=== PATIENT | male | born 1975 | race Caucasian/White ===

== ENCOUNTER 2019-04-16 21:04 | Emergency (ER) | payer BC ==
[2019-04-16 21:29] VITALS: TEMP 98.4; BMI 38.2
--- NOTE | 2019-04-16 21:29 | PDOC ---
Rapid Medical Evaluation Chief Complaint: Blood Pressure Problem Time Seen by Provider: 04/16/19 21:24 Medical Evaluation: Allergies Allergy/AdvReac Type Severity Reaction Status Date / Time No Known Drug Allergies Allergy Verified 03/01/16 17:54 04/16/19 21:25 44 year old male c/o right arm pain x 2 days after falling asleep on the floor. patient send to ER by urgent care for evaluation of high blood pressure reading and bodyaches r/o rhabdo PE: Patient alert ox3 A: bodyaches P: Labs EKG Discharge Disposition - Diagnosis Abnormal blood pressure - Referrals - Patient Instructions - Post Discharge Activity
[2019-04-16 21:59] LABS: BASO % 0.7 % (0-2.0); EOS % 0.9 % (0-4.5); HEMATOCRIT 41.6 % (35.4-49); HEMOGLOBIN 14.1 GM/dL (11.7-16.9); LYMPH % 10.9 % (8-40); MCH 29.7 pg (25.7-33.7); MCHC 33.9 g/dl (32.0-35.9); MEAN CELL VOLUME 87.7 fl (80-96); MEAN PLT VOLUME 8.5 fl (7.5-11.1); NEUT % 79.5 % (42.8-82.8); PLATELET COUNT 229 K/MM3 (134-434); RBC 4.74 M/mm3 (4.00-5.60); RDW 13.6 % (11.9-15.9); WHITE BLOOD COUNT 10.4 K/mm3 (4.0-10.0)
[2019-04-16 22:28] LABS: ALBUMIN 4.1 g/dl (3.4-5.0); ALK PHOS 99 U/L (45-117); ANION GAP 7 MMOL/L (8-16); BILIRUBIN,TOTAL 0.5 mg/dL (0.2-1); BLOOD UREA NITROGEN 18.5 mg/dL (7-18); CALCIUM 9.3 mg/dL (8.5-10.1); CHLORIDE 106 mmol/L (98-107); CO2 28 mmol/L (21-32); GLUCOSE,RANDOM 128 mg/dL (74-106); POTASSIUM 4.2 mmol/L (3.5-5.1); SGOT/AST 18 U/L (15-37); SGPT/ALT 27 U/L (13-61); SODIUM 141 mmol/L (136-145); TOT PROT 7.6 g/dl (6.4-8.2)
[2019-04-16 23:43] VITALS: BP 139/92; PULSE 84
--- NOTE | 2019-04-17 00:10 | PDOC ---
History of Present Illness - General Chief Complaint: Blood Pressure Problem Stated Complaint: HIGH BLOOD PRESSURE Time Seen by Provider: 04/16/19 21:24 History Source: Patient Exam Limitations: No Limitations Past History - Past Medical History Allergies/Adverse Reactions: Allergies Allergy/AdvReac Type Severity Reaction Status Date / Time No Known Drug Allergies Allergy Verified 04/16/19 21:29 Home Medications: Ambulatory Orders Amlodipine Besylate/Valsartan [Amlodipine-Valsartan 5-160 mg] 1 each PO DAILY COPD: No Disorders: Yes (KIDNEY STONES) HTN: Yes - Immunization History Immunization Up to Date: Yes - Suicide/Smoking/Psychosocial Hx Smoking History: Former smoker Have you smoked in the past 12 months: No Number of Cigarettes Smoked Daily: 0 If you are a former smoker, when did you quit?: 2014 Information on smoking cessation initiated: No Hx Alcohol Use: No Drug/Substance Use Hx: No Substance Use Type: None Hx Substance Use Treatment: No *Physical Exam - Vital Signs Last Vital Signs Temp Pulse Resp BP Pulse Ox 98.4 F 84 20 139/92 98 04/16/19 21:24 04/16/19 23:42 04/16/19 21:24 04/16/19 23:42 04/16/19 23:42 - Physical Exam General Appearance: No: Apparent Distress Neck: positive: Supple. negative: Decreased range of motion, Tender lateral, Tender midline Respiratory/Chest: positive: Lungs Clear, Normal Breath Sounds. negative: Respiratory Distress Cardiovascular: positive: Regular Rhythm, Regular Rate, S1, S2. negative: Murmur Gastrointestinal/Abdominal: positive: Normal Bowel Sounds, Soft. negative: Tender, Distended, Guarding, Rebound Neurologic: positive: Fully Oriented, Alert, Normal Mood/Affect, Motor Strength 5/5. negative: Sensory Deficit, Confused, Disoriented ED Treatment Course - LABORATORY CBC & Chemistry Diagram: 04/16/19 21:46 04/16/19 21:46 - ADDITIONAL ORDERS Additional order review: Laboratory Results 04/16/19 21:46 Sodium 141 Potassium 4.2 Chloride 106 Carbon Dioxide 28 Anion Gap 7 L BUN 18.5 H Creatinine 1.0 Est GFR (CKD-EPI)AfAm 104.15 Est GFR (CKD-EPI)NonAf 89.86 Random Glucose 128 H Calcium 9.3 Total Bilirubin 0.5 AST 18 ALT 27 Alkaline Phosphatase 99 Creatine Kinase 108 Troponin I < 0.02 Total Protein 7.6 Albumin 4.1 04/16/19 21:46 RBC 4.74 MCV 87.7 MCHC 33.9 RDW 13.6 MPV 8.5 Neutrophils % 79.5 Lymphocytes % 10.9 D Monocytes % 8.0 Eosinophils % 0.9 Basophils % 0.7 D Medical Decision Making - Medical Decision Making 44 y/o M hx of HTN presents with R sided neck pain radiating down R arm after sleeping on R arm 4 days ago. Mentions he didn't pay it much attention but his told him he should get it evaluated as it could be something serious, which patient made anxious. He went to urgent care and was found to have BP of 180/120 and was sent to ER. Patient takes Norvasc/Losartan currently for BP, but states BP has never been this high. Denies numbness/tingling/weakness of extremities, fever, sob, cp, abd pain, n/v, trauma. EKG: NSR at 92 bpm, TWI lead III Labs reviewed and unremarkable Repeat BP much better Could likely be MSK pain; less likely radiculopathy stable for dc 04/17/19 00:06 *DC/Admit/Observation/Transfer Diagnosis at time of Disposition: Right arm pain - Discharge Dispostion Disposition: HOME Condition at time of disposition: Stable Decision to Admit order: No - Referrals Referrals: Bruno Mercedes MD [Primary Care Provider] - 2 Days - Patient Instructions Printed Discharge Instructions: DI for High Blood Pressure Additional Instructions: Thank you for choosing [facility]. It was a pleasure taking care of you. Likely your right arm pain is muscular in nature. Please follow-up with your doctor for better control of blood pressure Return to the Emergency Department if your symptoms worsen or persist, you have fever, shortness of breath, chest pain, weakness of extremities or other concerning symptoms. - Post Discharge Activity
--- NOTE | 2019-04-17 14:03 | EKG ---
Test Reason : Blood Pressure : / mmHG Vent. Rate : 092 BPM Atrial Rate : 092 BPM P-R Int : 154 ms QRS Dur : 086 ms QT Int : 372 ms P-R-T Axes : 039 -02 004 degrees QTc Int : 460 ms NORMAL SINUS RHYTHM WHEN COMPARED WITH ECG OF 22-DEC-2015 00:09, NO SIGNIFICANT CHANGE WAS FOUND Confirmed by LANNY RAYMOND MD ([id number]) on 04/17/2019 2:02:45 PM Referred By: Confirmed By:LANNY RAYMOND MD
== END 2019-04-17 00:22 | disposition home or self-care (01) ==
LOC: JER 21:04
DX: M79.601 Pain in right arm (principal); Z87.891 Personal history of nicotine dependence; I10 Essential (primary) hypertension
CPT/HCPCS: 36415; 80053; 82550; 84484; 85025; 93005; 93010; 99283-25

== ENCOUNTER 2021-04-10 00:16 | Emergency (ER) | payer BC ==
[2021-04-10 00:59] VITALS: BMI 38.8
[2021-04-10] MEDS ORDERED: morphine CARPU-JECT 2 MG/1 ML DISP.SYRIN IVPUSH ONE (02:41)
[2021-04-10] MEDS ORDERED: FAMOTIDINE 20 MG/50 ML IVPB 20 MG/50 ML MG IVPB ONE ×2 (02:51→02:56)
[2021-04-10] MEDS ORDERED: MAG HYDROX/AL HYDROX/SIMETH 30 ML UNIT-DOSE CUP PO ONE (02:51)
[2021-04-10] MEDS ORDERED: ACETAMINOPHEN 1000 MG/100 ML VIAL (NON FORMULARY) IVPB ONE (02:51)
[2021-04-10] MEDS ORDERED: ONDANSETRON 4 MG/2 ML VIAL IVPUSH ONE (02:51)
[2021-04-10] MEDS ORDERED: ONDANSETRON 4 MG/2 ML VIAL ONE (02:55)
[2021-04-10] MEDS ORDERED: ACETAMINOPHEN INJECTION 100 ML IVPB ONE (02:55)
[2021-04-10] MEDS ORDERED: MAG HYDROX/AL HYDROX/SIMETH 30 ML UNIT-DOSE CUP ONE (02:55)
[2021-04-10] MEDS ORDERED: MORPHINE SULFATE 2 MG/ML VIAL ONE (03:26)
[2021-04-10 03:44] LABS: CHLORIDE 105 mmol/L (98-107); SODIUM 137 mmol/L (136-145)
[2021-04-10 03:47] LABS: ALBUMIN 4.4 g/dl (3.4-5.0); ANION GAP 10 MMOL/L (8-16); BLOOD UREA NITROGEN 13.6 mg/dL (7-18); CALCIUM 8.8 mg/dL (8.5-10.1); CO2 23 mmol/L (21-32); GLUCOSE,RANDOM 129 mg/dL (74-106); LIPASE 99 U/L (73-393)
[2021-04-10 03:50] LABS: CREATININE 0.9 mg/dL (0.55-1.3); SGOT/AST 26 U/L (15-37); SGPT/ALT 33 U/L (13-61)
[2021-04-10 03:52] LABS: BILIRUBIN,TOTAL 0.6 mg/dL (0.2-1); TOT PROT 8.6 g/dl (6.4-8.2)
[2021-04-10 03:53] LABS: ALK PHOS 105 U/L (45-117)
[2021-04-10 04:47] LABS: BASO % 0.5 % (0-2.0); EOS % 0.1 % (0-4.5); HEMATOCRIT 42.9 % (35.4-49); LYMPH % 4.7 % (8-40); MCH 29.6 pg (25.7-33.7); MCHC 34.9 g/dl (32.0-35.9); MEAN PLT VOLUME 9.3 fl (7.5-11.1); MONO % 3.9 % (3.8-10.2); NEUT % 90.8 % (42.8-82.8); PLATELET COUNT 291 10^3/uL (134-434); RBC 5.04 M/mm3 (4.00-5.60); RDW 13.6 % (11.9-15.9); WHITE BLOOD COUNT 18.3 K/mm3 (4.0-10.0)
[2021-04-10] MEDS ORDERED: HYDROmorphone HCL CARPU-JECT 2 MG/1 ML DISP.SYRIN IVPB ONE (04:56)
[2021-04-10] MEDS ORDERED: HYDROmorphone HCl 2 MG/ML VIAL ONE ×2 (05:10→09:29)
[2021-04-10 06:56] LABS: URINE APPEARANCE CLEAR; URINE BILIRUBIN NEGATIVE (NEGATIVE); URINE COLOR YELLOW; URINE GLUCOSE (UA) NEGATIVE (NEGATIVE); URINE KETONE NEGATIVE (NEGATIVE); URINE LEUK ESTERASE NEGATIVE (NEGATIVE); URINE NITRITE NEGATIVE (NEGATIVE); URINE PROTEIN NEGATIVE (NEGATIVE); URINE UROBILINOGEN 0.2 mg/dL (0.2-1.0)
[2021-04-10 07:04] VITALS: PULSE 85
[2021-04-10] MEDS ORDERED: CEFTRIAXONE 1,000 MG in DEXTROSE 5%-WATER - 50 ML IVPB ONE (07:27)
[2021-04-10] MEDS ORDERED: morphine CARPU-JECT 4 MG/1 ML DISP.SYRIN IVPUSH ONE (08:37)
[2021-04-10] MEDS ORDERED: CEFTRIAXONE 1 GM/50 ML BAG ONE (08:58)
[2021-04-10] MEDS ORDERED: morphine SULFATE 4 MG/ML VIAL ONE (08:59)
[2021-04-10] MEDS ORDERED: HYDROmorphone HCL CARPU-JECT 2 MG/1 ML DISP.SYRIN IVPUSH ONE (09:28)
[2021-04-10 11:57] VITALS: BP 163/78; TEMP 97.8
== END 2021-04-10 11:57 | disposition short-term general hospital (02) ==
LOC: JER 00:16
PROC: 3E033NZ Introduction of Analgesics, Hypnotics, Sedatives into Peripheral Vein, Percutaneous Approach (ICD-10-PCS; principal; 2021-04-10)
PROC: 3E033GC Introduction of Other Therapeutic Substance into Peripheral Vein, Percutaneous Approach (ICD-10-PCS; 2021-04-10)
PROC: 3E033GC Introduction of Other Therapeutic Substance into Peripheral Vein, Percutaneous Approach (ICD-10-PCS; 2021-04-10)
PROC: 3E033GC Introduction of Other Therapeutic Substance into Peripheral Vein, Percutaneous Approach (ICD-10-PCS; 2021-04-10)
PROC: 3E033GC Introduction of Other Therapeutic Substance into Peripheral Vein, Percutaneous Approach (ICD-10-PCS; 2021-04-10)
PROC: 3E03329 Introduction of Other Anti-infective into Peripheral Vein, Percutaneous Approach (ICD-10-PCS; 2021-04-10)
PROC: 3E033GC Introduction of Other Therapeutic Substance into Peripheral Vein, Percutaneous Approach (ICD-10-PCS; 2021-04-10)
PROC: 3E033GC Introduction of Other Therapeutic Substance into Peripheral Vein, Percutaneous Approach (ICD-10-PCS; 2021-04-10)
DX: K81.0 Acute cholecystitis (principal)
CPT/HCPCS: 36415; 71046-TC-FY; 74177-TC; 76705-TC; 80053; 81003; 82550; 82553; 83605; 83690; 84484; 85025; 87040; 87086; 93005; 93010; 99285-25; C9803; J0131; U0003; U0005

== ENCOUNTER 2021-07-17 05:20 | Day surgery (SDC) | payer BC ==
[2021-07-14 11:01] VITALS: BMI 37.4
[2021-07-17 15:50] VITALS: TEMP 98
[2021-07-17 16:26] VITALS: BP 138/84; PULSE 76
== END 2021-07-17 16:44 | disposition home or self-care (01) ==
LOC: JASU-SURG 05:20
PROVIDERS: ATTEND Urology
PROC: 0TF4XZZ Fragmentation in Left Kidney Pelvis, External Approach (ICD-10-PCS; principal; 2021-07-17 13:30)
DX: N20.0 Calculus of kidney (principal)

== ENCOUNTER 2022-03-24 11:56 | Observation (INO) | payer BC ==
[2022-03-24 11:59] VITALS: BMI 39.6
[2022-03-24] MEDS ORDERED: LABETALOL HCL 5 MG/1 ML (100MG/20 ML VIAL) IVPUSH ONE ×2 (12:46→14:44)
[2022-03-24 13:23] LABS: BASO % 0.8 % (0-2.0); EOS % 1.3 % (0-4.5); HEMATOCRIT 40.8 % (35.4-49); HEMOGLOBIN 14.4 GM/dL (11.7-16.9); LYMPH % 12.9 % (8-40); MCH 29.7 pg (25.7-33.7); MCHC 35.2 g/dl (32.0-35.9); MEAN CELL VOLUME 84.3 fl (80-96); MEAN PLT VOLUME 8.3 fl (7.5-11.1); MONO % 9.4 % (3.8-10.2); NEUT % 75.6 % (42.8-82.8); PLATELET COUNT 240 10^3/uL (134-434); RBC 4.84 M/mm3 (4.00-5.60); RDW 14.6 % (11.9-15.9); WHITE BLOOD COUNT 9.6 K/mm3 (4.0-10.0)
[2022-03-24 13:44] LABS: CHLORIDE 99 mmol/L (98-107); SODIUM 125 mmol/L (136-145)
[2022-03-24 13:46] LABS: ALBUMIN 3.4 g/dl (3.4-5.0); BLOOD UREA NITROGEN 15.4 mg/dL (7-18); CALCIUM 8.4 mg/dL (8.5-10.1); CO2 27 mmol/L (21-32); GLUCOSE,RANDOM 110 mg/dL (74-106)
[2022-03-24 13:49] LABS: CREATININE 1.2 mg/dL (0.55-1.3)
[2022-03-24 13:51] LABS: TOT PROT 9.5 g/dl (6.4-8.2)
[2022-03-24 13:52] LABS: ALK PHOS 106 U/L (45-117)
[2022-03-24 15:33] LABS: EPI CELLS 3 /uL (0-25.1); HYALINE CASTS 1 /uL (0-3.1); PH,URINE 6.5 (5.0-8.0); URINE APPEARANCE CLEAR; URINE BACTERIA 1 /uL (0-1359); URINE BILIRUBIN NEGATIVE (NEGATIVE); URINE COLOR YELLOW; URINE GLUCOSE (UA) NEGATIVE (NEGATIVE); URINE KETONE NEGATIVE (NEGATIVE); URINE LEUK ESTERASE NEGATIVE (NEGATIVE); URINE NITRITE NEGATIVE (NEGATIVE); URINE PROTEIN 1+ (NEGATIVE); URINE RBC 4 /uL (0-23.9); URINE UROBILINOGEN 0.2 mg/dL (0.2-1.0); URINE WBC 4 /uL (0-25.8)
[2022-03-24 15:52] LABS: ALBUMIN 3.6 g/dl (3.4-5.0); CALCIUM 8.4 mg/dL (8.5-10.1)
[2022-03-24 15:53] LABS: BLOOD UREA NITROGEN 14.2 mg/dL (7-18)
[2022-03-24 15:56] LABS: CREATININE 1.1 mg/dL (0.55-1.3)
[2022-03-24 15:57] LABS: BILIRUBIN,TOTAL 0.6 mg/dL (0.2-1)
[2022-03-24 16:01] LABS: TOT PROT 7.4 g/dl (6.4-8.2)
[2022-03-24] MEDS ORDERED: POTASSIUM CHLORIDE TABS 20 MEQ TABLET.ER (FP) PO ONE ×2 (16:01→16:21)
[2022-03-24] MEDS ORDERED: amLODIPine BESYLATE 10 MG TABLET (FP) PO ONE (16:03)
[2022-03-24] MEDS ORDERED: amLODIPine BESYLATE 10 MG TABLET (FP) ONE (16:21)
[2022-03-24] MEDS ORDERED: hydrALAZINE HCL 20 MG/ML VIAL IVPUSH ONE ×2 (16:53→18:08)
[2022-03-24] MEDS ORDERED: hydrALAZINE HCL 20 MG/ML VIAL ONE ×2 (17:05→18:51)
[2022-03-24] MEDS ORDERED: ACETAMINOPHEN 325 MG TABLET (FP) PO ONE (17:05)
[2022-03-24] MEDS ORDERED: ACETAMINOPHEN 325 MG TABLET (FP) ONE (17:17)
[2022-03-24] MEDS ORDERED: VALSARTAN 160 MG TABLET PO ONE (21:06)
[2022-03-24] MEDS ORDERED: VALSARTAN 80 MG TABLET ONE (21:37)
[2022-03-25] MEDS ORDERED: VALSARTAN 160 MG TABLET PO ONE (06:01)
[2022-03-25] MEDS ORDERED: ACETAMINOPHEN 325 MG TABLET (FP) PO PRN ×2 (06:18→11:21)
[2022-03-25] MEDS ORDERED: ENOXAPARIN NA (PORCINE) 40 MG/0.4 ML DISP.SYRIN SQ SCH (10:00)
[2022-03-25] MEDS ORDERED: METOPROLOL TARTRATE 25 MG TABLET (FP) PO SCH (10:00)
[2022-03-25] MEDS ORDERED: amLODIPine BESYLATE 10 MG TABLET (FP) PO SCH (10:00)
[2022-03-25] MEDS ORDERED: metoPROLOL SUCCINATE 25 MG TAB.SR.24H (FP) PO SCH (10:00)
[2022-03-25 10:08] LABS: BASO % 0.3 % (0-2.0); EOS % 1.4 % (0-4.5); HEMATOCRIT 36.5 % (35.4-49); LYMPH % 14.7 % (8-40); MCH 29.7 pg (25.7-33.7); MCHC 35.6 g/dl (32.0-35.9); MEAN CELL VOLUME 83.2 fl (80-96); MEAN PLT VOLUME 8.5 fl (7.5-11.1); MONO % 6.2 % (3.8-10.2); NEUT % 77.4 % (42.8-82.8); PLATELET COUNT 224 10^3/uL (134-434); RBC 4.38 M/mm3 (4.00-5.60); RDW 13.3 % (11.9-15.9); WHITE BLOOD COUNT 8.8 K/mm3 (4.0-10.0)
[2022-03-25 10:35] LABS: ALBUMIN 3.5 g/dl (3.4-5.0); BLOOD UREA NITROGEN 15.6 mg/dL (7-18); CALCIUM 8.7 mg/dL (8.5-10.1); CREATININE 1.1 mg/dL (0.55-1.3); MAGNESIUM 2.1 mg/dL (1.8-2.4); PHOSPHOROUS 2.5 mg/dL (2.5-4.9)
[2022-03-25] MEDS ORDERED: POTASSIUM CHLORIDE TABS 20 MEQ TABLET.ER (FP) PO ONE (10:38)
[2022-03-25] MEDS: LIDOCAINE 5% TOPICAL PATCH TP SCH (12:29)
[2022-03-25] MEDS: VALSARTAN 160 MG TABLET PO SCH (14:44)
[2022-03-25] MEDS: METOPROLOL TARTRATE 25 MG TABLET (FP) PO SCH (22:15)
[2022-03-25] MEDS: LIDOCAINE PATCH REMOVAL MC SCH (22:17)
[2022-03-26] MEDS: amLODIPine BESYLATE 10 MG TABLET (FP) PO SCH (10:38)
[2022-03-26] MEDS: VALSARTAN 160 MG TABLET PO SCH (10:38)
[2022-03-26] MEDS: ENOXAPARIN NA (PORCINE) 40 MG/0.4 ML DISP.SYRIN SQ SCH (10:38)
[2022-03-26] MEDS: METOPROLOL TARTRATE 25 MG TABLET (FP) PO SCH (10:38)
[2022-03-26] MEDS: LIDOCAINE 5% TOPICAL PATCH TP SCH (10:38)
[2022-03-26 16:37] LABS: ALBUMIN 3.6 g/dl (3.4-5.0); CALCIUM 9.1 mg/dL (8.5-10.1)
[2022-03-26 16:38] LABS: BLOOD UREA NITROGEN 17.5 mg/dL (7-18)
[2022-03-26 16:42] LABS: BILIRUBIN,TOTAL 0.5 mg/dL (0.2-1)
[2022-03-26] MEDS ORDERED: METOPROLOL TARTRATE 50 MG TABLET (FP) PO ONE (18:09)
[2022-03-26] MEDS ORDERED: METOPROLOL TARTRATE 25 MG TABLET (FP) PO SCH (18:10)
[2022-03-26] MEDS ORDERED: CARVEDILOL 25 MG TABLET (FP) PO ONE ×2 (18:14→18:45)
[2022-03-26] MEDS ORDERED: CARVEDILOL 12.5 MG TABLET (FP) PO SCH (22:00)
[2022-03-26] MEDS: CARVEDILOL 25 MG TABLET (FP) PO SCH (22:03)
[2022-03-26] MEDS: LIDOCAINE PATCH REMOVAL MC SCH (22:03)
[2022-03-27] MEDS: ENOXAPARIN NA (PORCINE) 40 MG/0.4 ML DISP.SYRIN SQ SCH (09:13)
[2022-03-27] MEDS: LIDOCAINE 5% TOPICAL PATCH TP SCH (09:13)
[2022-03-27] MEDS: VALSARTAN 160 MG TABLET PO SCH (09:14)
[2022-03-27] MEDS: CARVEDILOL 25 MG TABLET (FP) PO SCH (09:14)
[2022-03-27] MEDS: amLODIPine BESYLATE 10 MG TABLET (FP) PO SCH (09:14)
[2022-03-27 13:21] LABS: BASO % 0.5 % (0-2.0); EOS % 2.2 % (0-4.5); HEMATOCRIT 38.4 % (35.4-49); HEMOGLOBIN 13.3 GM/dL (11.7-16.9); LYMPH % 20.4 % (8-40); MCH 29.2 pg (25.7-33.7); MCHC 34.5 g/dl (32.0-35.9); MEAN CELL VOLUME 84.6 fl (80-96); MEAN PLT VOLUME 8.8 fl (7.5-11.1); MONO % 7.8 % (3.8-10.2); NEUT % 69.1 % (42.8-82.8); PLATELET COUNT 251 10^3/uL (134-434); RBC 4.55 M/mm3 (4.00-5.60); RDW 13.2 % (11.9-15.9); WHITE BLOOD COUNT 9.8 K/mm3 (4.0-10.0)
[2022-03-27 14:19] LABS: BLOOD UREA NITROGEN 19.5 mg/dL (7-18); CALCIUM 8.9 mg/dL (8.5-10.1); MAGNESIUM 2.2 mg/dL (1.8-2.4)
[2022-03-27 14:20] LABS: ALBUMIN 3.6 g/dl (3.4-5.0)
[2022-03-27 14:23] LABS: CREATININE 0.9 mg/dL (0.55-1.3)
[2022-03-27 14:24] LABS: BILIRUBIN,TOTAL 0.6 mg/dL (0.2-1); TOT PROT 7.2 g/dl (6.4-8.2)
[2022-03-27] MEDS ORDERED: POTASSIUM CHLORIDE TABS 20 MEQ TABLET.ER (FP) PO ONE (14:46)
[2022-03-27 15:16] VITALS: BP 146/89; PULSE 76; RESP 16; TEMP 98.4
== END 2022-03-27 16:29 | disposition home or self-care (01) ==
LOC: JER 11:56 → JERBED 19:06 → INTOOBSV 19:06 → J5S 23:14 → J4W 03-25 12:45
PROVIDERS: ADMIT Hospitalist; ATTEND Nurse Practitioner Acute Care
PROC: 3E023GC Introduction of Other Therapeutic Substance into Muscle, Percutaneous Approach (ICD-10-PCS; principal; 2022-03-24)
PROC: 3E033GC Introduction of Other Therapeutic Substance into Peripheral Vein, Percutaneous Approach (ICD-10-PCS; 2022-03-24)
DX: I16.0 Hypertensive urgency (principal); I45.81 Long QT syndrome; R07.9 Chest pain, unspecified; S93.409A Sprain of unspecified ligament of unspecified ankle, initial encounter; X58.XXXA Exposure to other specified factors, initial encounter; Y93.89 Activity, other specified; Y92.89 Other specified places as the place of occurrence of the external cause; E66.8 Other obesity; Z68.39 Body mass index [BMI] 39.0-39.9, adult
CPT/HCPCS: 36415; 71046-TC-FY; 71250-TC; 73610-TC-RT-FY; 80053; 80061; 81003; 83036; 83735; 84100; 84439; 84443; 84484; 85025; 93005; 93010; 93306-TC; 99285-25; C9803-CS; G0378; U0003; U0005

== ENCOUNTER 2022-03-28 23:48 | Emergency (ER) | payer BC ==
[2022-03-29 01:09] VITALS: RESP 18; TEMP 98.4; BMI 38.7
[2022-03-29 01:30] LABS: BASO % 0.5 % (0-2.0); EOS % 1.4 % (0-4.5); HEMATOCRIT 38.4 % (35.4-49); HEMOGLOBIN 13.4 GM/dL (11.7-16.9); MCH 29.6 pg (25.7-33.7); MEAN CELL VOLUME 84.5 fl (80-96); MEAN PLT VOLUME 8.4 fl (7.5-11.1); MONO % 7.5 % (3.8-10.2); NEUT % 78.6 % (42.8-82.8); PLATELET COUNT 260 10^3/uL (134-434); RBC 4.54 M/mm3 (4.00-5.60); RDW 13.1 % (11.9-15.9); WHITE BLOOD COUNT 12.8 K/mm3 (4.0-10.0)
[2022-03-29 02:00] LABS: BLOOD UREA NITROGEN 26.9 mg/dL (7-18); CALCIUM 8.7 mg/dL (8.5-10.1)
[2022-03-29 02:03] LABS: CREATININE 1.2 mg/dL (0.55-1.3)
[2022-03-29 02:04] LABS: BILIRUBIN,TOTAL 0.8 mg/dL (0.2-1); TOT PROT 7.8 g/dl (6.4-8.2)
[2022-03-29 02:07] LABS: N-TERMINAL BNP 65.7 pg/ml (5-125)
[2022-03-29 05:39] VITALS: BP 150/76; PULSE 76
== END 2022-03-29 05:38 | disposition home or self-care (01) ==
LOC: JER 23:48
DX: R07.9 Chest pain, unspecified (principal); I10 Essential (primary) hypertension
CPT/HCPCS: 36415; 71046-TC-FY; 80053; 83880; 84484; 85025; 93005; 93010; 99285-25

== ENCOUNTER 2022-04-23 05:08 | Day surgery (SDC) | payer BC ==
[2022-04-19 15:27] VITALS: BMI 38.7
[2022-04-23] MEDS ORDERED: LIDOCAINE VISCOUS 2% ORAL/TOP 15 ML UNIT-DOSE CUP ONE (12:45)
[2022-04-23 13:52] VITALS: PULSE 71
[2022-04-23 14:08] VITALS: BP 130/82; RESP 14; TEMP 97.8
== END 2022-04-23 14:25 | disposition home or self-care (01) ==
LOC: JASU-ENDO 05:08
PROVIDERS: ATTEND Internal Medicine Cardiovascular Disease
PROC: B246ZZ4 Ultrasonography of Right and Left Heart, Transesophageal (ICD-10-PCS; principal; 2022-04-23 13:00)
DX: I35.1 Nonrheumatic aortic (valve) insufficiency (principal)
CPT/HCPCS: 93312; 93325

== ENCOUNTER 2022-12-18 10:57 | Emergency (ER) | payer BC ==
[2022-12-18 11:06] VITALS: BP 164/95; PULSE 94; RESP 18; TEMP 98.2; BMI 39.9
== END 2022-12-18 13:50 | disposition home or self-care (01) ==
LOC: JERFT 10:57
DX: M54.50 Low back pain, unspecified (principal); I10 Essential (primary) hypertension
CPT/HCPCS: 99282-25

== ENCOUNTER 2023-03-11 04:21 | Day surgery (SDC) | payer BC ==
[2023-03-05 11:34] VITALS: BMI 39.6
[2023-03-11 10:39] VITALS: RESP 18
[2023-03-11] MEDS ORDERED: KETOROLAC TROMETHAMINE 30 MG/1 ML VIAL ONE (14:53)
[2023-03-11] MEDS ORDERED: MIDAZOLAM HCL 2 MG/2 ML SINGLE DOSE VIAL ONE (14:54)
[2023-03-11 15:45] VITALS: PULSE 75
[2023-03-11 16:27] VITALS: BP 136/82; TEMP 98.6
== END 2023-03-11 16:52 | disposition home or self-care (01) ==
LOC: JASU-SURG 04:21
PROVIDERS: ATTEND Urology
PROC: 0TF3XZZ Fragmentation in Right Kidney Pelvis, External Approach (ICD-10-PCS; principal; 2023-03-11 14:55)
DX: N20.0 Calculus of kidney (principal)

== ENCOUNTER 2023-03-18 16:59 | Emergency (ER) | payer BC ==
[2023-03-18 17:12] VITALS: PULSE 90; RESP 20; TEMP 98.2; BMI 40.7
[2023-03-18 18:58] LABS: BASO % 0.7 % (0-2.0); EOS % 2.2 % (0-4.5); HEMATOCRIT 42.2 % (35.4-49); HEMOGLOBIN 14.9 GM/dL (11.7-16.9); LYMPH % 15.8 % (8-40); MCH 29.5 pg (25.7-33.7); MCHC 35.3 g/dl (32.0-35.9); MEAN CELL VOLUME 83.6 fl (80-96); MEAN PLT VOLUME 8.4 fl (7.5-11.1); MONO % 8.4 % (3.8-10.2); NEUT % 72.9 % (42.8-82.8); PLATELET COUNT 261 10^3/uL (134-434); RBC 5.05 M/mm3 (4.00-5.60); RDW 13.6 % (11.9-15.9); WHITE BLOOD COUNT 9.5 K/mm3 (4.0-10.0)
[2023-03-18 19:24] LABS: POTASSIUM 3.4 mmol/L (3.5-5.1)
[2023-03-18 19:26] LABS: ALBUMIN 4.1 g/dl (3.4-5.0); CALCIUM 8.9 mg/dL (8.5-10.1)
[2023-03-18 19:30] LABS: CREATININE 1.1 mg/dL (0.55-1.3)
[2023-03-18 19:31] LABS: BILIRUBIN,TOTAL 0.7 mg/dL (0.2-1); TOT PROT 7.7 g/dl (6.4-8.2)
[2023-03-18 20:39] VITALS: BP 175/99
== END 2023-03-18 20:39 | disposition home or self-care (01) ==
LOC: JER 16:59
DX: I10 Essential (primary) hypertension (principal); R51.9 Headache, unspecified
CPT/HCPCS: 36415; 71045-TC-FY; 80053; 84443; 84484; 85025; 93005; 93010; 99285-25

== ENCOUNTER 2023-05-12 18:14 | Emergency (ER) | payer BC ==
[2023-05-12 18:20] VITALS: TEMP 97.7; BMI 36.9
[2023-05-12 18:50] VITALS: RESP 20
[2023-05-12] MEDS ORDERED: NITROGLYCERIN 2% OINTMENT - 1GM PACKET TD ONE ×2 (19:20→19:45)
[2023-05-12] MEDS ORDERED: NITROGLYCERIN SUBLINGUAL 1/150 0.4 MG TAB SL ONE (19:20)
[2023-05-12] MEDS ORDERED: NITROGLYCERIN SUBLINGUAL 1/150 0.4 MG TAB ONE (19:22)
[2023-05-12] MEDS ORDERED: amLODIPine BESYLATE 10 MG TABLET (FP) PO ONE (20:31)
[2023-05-12 20:48] LABS: BASO % 0.6 % (0-2.0); EOS % 1.6 % (0-4.5); HEMATOCRIT 41.5 % (35.4-49); HEMOGLOBIN 14.2 GM/dL (11.7-16.9); LYMPH % 12.5 % (8-40); MCH 29.4 pg (25.7-33.7); MCHC 34.2 g/dl (32.0-35.9); MEAN CELL VOLUME 85.9 fl (80-96); MEAN PLT VOLUME 8.7 fl (7.5-11.1); MONO % 9.3 % (3.8-10.2); PLATELET COUNT 262 10^3/uL (134-434); RBC 4.84 M/mm3 (4.00-5.60); RDW 13.6 % (11.9-15.9); WHITE BLOOD COUNT 10.6 K/mm3 (4.0-10.0)
[2023-05-12 21:06] LABS: POTASSIUM 3.6 mmol/L (3.5-5.1)
[2023-05-12 21:08] LABS: CALCIUM 9.3 mg/dL (8.5-10.1)
[2023-05-12 21:09] LABS: BLOOD UREA NITROGEN 15.6 mg/dL (7-18); MAGNESIUM 2.3 mg/dL (1.8-2.4)
[2023-05-12] MEDS ORDERED: hydrALAZINE HCL 25 MG TABLET (FP) PO ONE (21:09)
[2023-05-12 21:12] LABS: CREATININE 1.1 mg/dL (0.55-1.3)
[2023-05-12 21:14] LABS: BILIRUBIN,TOTAL 0.6 mg/dL (0.2-1); TOT PROT 7.7 g/dl (6.4-8.2)
[2023-05-12] MEDS ORDERED: hydrALAZINE HCL 25 MG TABLET (FP) ONE (21:15)
[2023-05-12] MEDS ORDERED: amLODIPine BESYLATE 10 MG TABLET (FP) ONE ×2 (21:15→21:16)
[2023-05-12 21:23] VITALS: BP 158/76; PULSE 84
== END 2023-05-12 22:30 | disposition home or self-care (01) ==
LOC: JER 18:14
DX: R06.02 Shortness of breath (principal); R42 Dizziness and giddiness; R07.9 Chest pain, unspecified; I10 Essential (primary) hypertension
CPT/HCPCS: 36415; 71045-TC-FY; 80053; 83735; 84484; 85025; 93005; 93010; 99285-25

== ENCOUNTER 2023-08-10 16:29 | Emergency (ER) | payer BC ==
[2023-08-10 16:57] VITALS: BMI 41.0
[2023-08-10] MEDS ORDERED: NITROGLYCERIN SUBLINGUAL 1/150 0.4 MG TAB SL ONE ×2 (17:55→21:29)
[2023-08-10] MEDS ORDERED: NITROGLYCERIN SUBLINGUAL 1/150 0.4 MG TAB ONE ×2 (18:01→21:38)
[2023-08-10 18:33] LABS: BASO % 0.4 % (0-2.0); EOS % 1.9 % (0-4.5); HEMATOCRIT 43.1 % (35.4-49); HEMOGLOBIN 14.7 GM/dL (11.7-16.9); LYMPH % 13.9 % (8-40); MCH 28.3 pg (25.7-33.7); MEAN CELL VOLUME 83.2 fl (80-96); MEAN PLT VOLUME 8.3 fl (7.5-11.1); MONO % 6.9 % (3.8-10.2); NEUT % 76.9 % (42.8-82.8); PLATELET COUNT 275 10^3/uL (134-434); RBC 5.18 M/mm3 (4.00-5.60); RDW 13.6 % (11.9-15.9); WHITE BLOOD COUNT 10.7 K/mm3 (4.0-10.0)
[2023-08-10 18:42] LABS: INR 1.12 (0.83-1.09)
[2023-08-10 18:45] LABS: ACTIVATED PTT 30.9 SECONDS (25.2-36.5)
[2023-08-10 18:54] LABS: POTASSIUM 3.4 mmol/L (3.5-5.1)
[2023-08-10 18:57] LABS: ALBUMIN 3.7 g/dl (3.4-5.0); BLOOD UREA NITROGEN 16.7 mg/dL (7-18); CALCIUM 8.9 mg/dL (8.5-10.1)
[2023-08-10 19:00] LABS: CREATININE 1.1 mg/dL (0.55-1.3)
[2023-08-10 19:02] LABS: BILIRUBIN,TOTAL 0.6 mg/dL (0.2-1); TOT PROT 7.7 g/dl (6.4-8.2)
[2023-08-10] MEDS ORDERED: VALSARTAN 160 MG TABLET PO ONE (20:27)
[2023-08-10] MEDS ORDERED: MAGNESIUM SULF 50% (8.12 MEQ/2 ML-1 GM VIAL) IVPB ONE (20:28)
[2023-08-10] MEDS ORDERED: POTASSIUM CHLORIDE TABS 20 MEQ TABLET.ER (FP) PO ONE ×2 (20:28→21:01)
[2023-08-10] MEDS ORDERED: MAG HYDROX/AL HYDROX/SIMETH 30 ML UNIT-DOSE CUP PO ONE (20:28)
[2023-08-10] MEDS ORDERED: MAG HYDROX/AL HYDROX/SIMETH 30 ML UNIT-DOSE CUP ONE (21:02)
[2023-08-10] MEDS ORDERED: VALSARTAN 80 MG TABLET ONE (21:02)
[2023-08-10] MEDS ORDERED: MAGNESIUM SULFATE IN WATER 2 GM/50 ML IVPB IVPB ONE (21:02)
[2023-08-10] MEDS ORDERED: NITROGLYCERIN 2% OINTMENT - 1GM PACKET TD ONE ×2 (21:29→21:38)
[2023-08-10 22:01] VITALS: BP 181/101; PULSE 87; RESP 20; TEMP 98
== END 2023-08-10 23:11 | disposition home or self-care (01) ==
LOC: JER 16:29
PROC: 3E033GC Introduction of Other Therapeutic Substance into Peripheral Vein, Percutaneous Approach (ICD-10-PCS; principal; 2023-08-10)
DX: I10 Essential (primary) hypertension (principal); R07.2 Precordial pain; R51.9 Headache, unspecified; E87.8 Other disorders of electrolyte and fluid balance, not elsewhere classified; Z20.822 Contact with and (suspected) exposure to COVID-19
CPT/HCPCS: 0241U-QW; 36415; 71045-TC-FY; 71275-TC; 74174-TC; 80053; 84484; 85025; 85610; 85730; 86850; 86900; 86901; 93005; 93010; 99285-25; Q9967